=== PATIENT | male | born 1955 | race Caucasian/White ===

== ENCOUNTER 2019-11-06 12:42 | Observation (INO) | payer MEDICARE, MEDICAID ==
[~2019-11-06] VITALS: Ht 188 cm; Wt 136.0 kg
[~2019-11-06 12:42] MED LIST: ASPI81TA45 PO; ATOR80TA PO; ENAL2.5T32 PO; METO25TA91 PO; TICA90TA PO; [UNRECOGNIZED DRUG - CODE] PO
--- NOTE | 2019-11-06 13:02 | NUR ---
PT ARRIVES TO ED WITH C/O SUBSTERNAL/STERNUM CHEST PAIN THAT IS LIKE PRESSURE AND SHARP. PT REPORTS STARTED WHILE MOVING AROUND. PT REPORTS THAT HE HAS HX OF AN NM. PT DENIES ANY TRAUMA. PT REPORTS HE GOT SOB BUT THINKS IT WAS BECAUSE OF THE PAIN. PTS EKG WNL. PT HAS NO JVD, GOOD CAP REFILL AND EVEN UNLABORED RESPIRATIONS.
--- NOTE | 2019-11-06 13:04 | NUR ---
PT CONNECTED TO MONITORS AND CALL LIGHT IN REACH.
--- NOTE | 2019-11-06 13:23 | NUR ---
IV ESTABLISHED AND LABS DRAWN
[2019-11-06] MEDS ORDERED: SODIUM CHLORIDE FLUSH 10ML SYR IVF ONE (14:00)
[2019-11-06] MEDS ORDERED: ASPIRIN 81 MG TABLET CHEW PO ONE (14:00)
[2019-11-06] MEDS ORDERED: ASPIRIN 81 MG TABLET CHEW ONE (14:10)
[2019-11-06 14:20] LABS: BASOPHILS # (AUTO) 0.04 x10^3/uL (0-0.1); BASOPHILS % (AUTO) 1 % (0-1); EOSINOPHILS # (AUTO) 0.08 x10^3/uL (0-0.4); EOSINOPHILS % (AUTO) 1 % (1-7); LYMPHOCYTES # (AUTO) 1.72 x10^3/uL (1-3.4); LYMPHOCYTES % (AUTO) 29 % (22-44); MD NO; MEAN CORPUSCULAR HEMOGLOBIN 29.1 pg (27.5-34.5); MEAN CORPUSCULAR HGB CONC 33.3 g/dL (33.2-36.2); MEAN CORPUSCULAR VOLUME 87.5 fL (81-97); MEAN PLATELET VOLUME 8.2 fL (7.4-10.4); MONOCYTES # (AUTO) 0.49 x10^3/uL (0.2-0.8); MONOCYTES % (AUTO) 8 % (2-9); NEUTROPHILS # (AUTO) 3.55 x10^3/uL (1.8-6.8); NEUTROPHILS % (AUTO) 61 % (42-75); PLATELET COUNT 254 x10^3/uL (130-400); RED BLOOD COUNT 5.09 x10^6/uL (4.38-5.82); RED CELL DISTRIBUTION WIDTH 13.9 % (9.4-14.8)
[2019-11-06 14:25] LABS: ALANINE AMINOTRANSFERASE 46 U/L (12-78); ALBUMIN 4.1 g/dL (3.4-5.0); ANION GAP 8 mmol/L (5-15); CALCIUM 9.2 mg/dL (8.5-10.1); CHLORIDE 108 mmol/L (98-107); CREATININE 1.34 mg/dL (0.7-1.3)
[2019-11-06 14:29] LABS: ALKALINE PHOSPHATASE 66 U/L (45-117); BILIRUBIN,TOTAL 0.6 mg/dL (0.2-1.0); TOTAL PROTEIN 7.7 g/dL (6.4-8.2); TROPONIN I < 0.015 ng/mL (0.000-0.045)
[2019-11-06] MEDS ORDERED: SODIUM CHLORIDE 0.9% 1,000 ML IV SCH (15:34)
[2019-11-06] MEDS ORDERED: LISI5TAB7 PO (15:52)
[2019-11-06] MEDS ORDERED: EMPA25TA PO (15:56)
[2019-11-06] MEDS ORDERED: DOXY20TA5 PO (15:56)
[2019-11-06] MEDS ORDERED: METF500T17 PO (15:56)
[2019-11-06] MEDS ORDERED: SODIUM CHLORIDE FLUSH 10ML SYR IVF PRN (16:00)
[2019-11-06] MEDS ORDERED: ONDANSETRON 2MG/ML, 2ML IVPush PRN (16:00)
[2019-11-06] MEDS ORDERED: PROMETHAZINE 25 MG/ML, 1ML IM PRN (16:00)
[2019-11-06] MEDS ORDERED: LABETALOL 5MG/ML, 20ML IVPush PRN (16:00)
[2019-11-06] MEDS ORDERED: hydrALAzine 20 MG/ML, 1ML IVPush PRN (16:00)
[2019-11-06] MEDS ORDERED: morphine SULFATE 10 MG/ML, 1ML IVPush PRN (16:00)
[2019-11-06] MEDS ORDERED: NITROGLYCERIN 0.4 MG BOTTLE (25 TABS) SL PRN (16:00)
--- NOTE | 2019-11-06 16:14 | NUR ---
REPORT RECEIVED FROM PETR RAYMUNDO
[2019-11-06 16:16] LABS: CHOLESTEROL, TOTAL 151 mg/dL (140-239); TRIGLYCERIDES 263 mg/dL (50-200); VLDL CHOLESTEROL 53 mg/dL (0-25)
[2019-11-06 16:18] LABS: CHOL/HDL RATIO 4.4; HDL CHOL % 23 % (26-37); HDL CHOLESTEROL (DIRECT) 34 mg/dL (40-60); LDL CHOLESTEROL,CALCULATED 64 mg/dL (54-169); LDL/HDL RATIO 1.9 (0.5-3.0); TROPONIN I < 0.015 ng/mL (0.000-0.045)
--- NOTE | 2019-11-06 16:50 | NUR ---
REPORT GIVEN TO PETR KUMAR. PLAN OF CARE DISCUSSED
[2019-11-06 17:19] VITALS: BP 119/78
[2019-11-06] MEDS ORDERED: EMPA10TA PO (17:37)
[2019-11-06] MEDS: INSULIN LISPRO 100 UNITS/ML, PEN SQ-INSULIN SCH ×2 (18:10→20:03)
[2019-11-06 18:58] VITALS: BP 138/75
[2019-11-06] MEDS: TICAGRELOR 90 MG TABLET PO SCH (20:04)
[2019-11-06] MEDS: ENALAPRIL 2.5MG TABLET PO SCH (20:05)
[2019-11-06] MEDS: ATORVASTATIN 80 MG TABLET PO SCH ×2 (20:05→20:07)
[2019-11-06] MEDS: HEPARIN 5,000 UNITS/ML, 1ML SQ SCH (22:22)
[2019-11-06 23:31] LABS: TROPONIN I < 0.015 ng/mL (0.000-0.045)
[2019-11-07 00:55] VITALS: BP 126/74
[2019-11-07] MEDS ORDERED: ASPIRIN 325 MG TABLET EC PO SCH (06:00)
[2019-11-07] MEDS ORDERED: METOPROLOL SUCCINATE 25 MG TAB.ER.24H PO SCH (06:00)
[2019-11-07] MEDS: HEPARIN 5,000 UNITS/ML, 1ML SQ SCH ×2 (06:02→14:00)
[2019-11-07 06:45] LABS: BASOPHILS # (AUTO) 0.03 x10^3/uL (0-0.1); BASOPHILS % (AUTO) 1 % (0-1); EOSINOPHILS # (AUTO) 0.11 x10^3/uL (0-0.4); EOSINOPHILS % (AUTO) 2 % (1-7); LYMPHOCYTES # (AUTO) 1.94 x10^3/uL (1-3.4); LYMPHOCYTES % (AUTO) 34 % (22-44); MD NO; MEAN CORPUSCULAR HEMOGLOBIN 28.7 pg (27.5-34.5); MEAN CORPUSCULAR HGB CONC 32.7 g/dL (33.2-36.2); MEAN CORPUSCULAR VOLUME 87.8 fL (81-97); MEAN PLATELET VOLUME 7.8 fL (7.4-10.4); MONOCYTES # (AUTO) 0.47 x10^3/uL (0.2-0.8); MONOCYTES % (AUTO) 8 % (2-9); NEUTROPHILS # (AUTO) 3.18 x10^3/uL (1.8-6.8); NEUTROPHILS % (AUTO) 56 % (42-75); PLATELET COUNT 231 x10^3/uL (130-400); RED BLOOD COUNT 4.77 x10^6/uL (4.38-5.82); RED CELL DISTRIBUTION WIDTH 13.9 % (9.4-14.8)
[2019-11-07 06:51] LABS: ALBUMIN 3.6 g/dL (3.4-5.0); ANION GAP 5 mmol/L (5-15); CALCIUM 8.4 mg/dL (8.5-10.1); CHLORIDE 109 mmol/L (98-107)
[2019-11-07 06:58] LABS: ALANINE AMINOTRANSFERASE 45 U/L (12-78); ALKALINE PHOSPHATASE 59 U/L (45-117); BILIRUBIN,TOTAL 0.9 mg/dL (0.2-1.0); CREATININE 1.08 mg/dL (0.7-1.3); TROPONIN I < 0.015 ng/mL (0.000-0.045)
[2019-11-07] MEDS: INSULIN LISPRO 100 UNITS/ML, PEN SQ-INSULIN SCH ×3 (07:00→16:04)
[2019-11-07] MEDS: TICAGRELOR 90 MG TABLET PO SCH (09:00)
[2019-11-07] MEDS: ENALAPRIL 2.5MG TABLET PO SCH (09:47)
[2019-11-07 09:51] VITALS: BP 121/74
[2019-11-07 13:45] VITALS: BP 118/71
== END 2019-11-07 16:27 | disposition home or self-care (01) ==
LOC: ED 13:03 → INTOOBSV 15:11 → EDIP 15:11 → 5SO 17:22
PROVIDERS: ADMIT Internal Medicine; ATTEND Internal Medicine
DX: R07.89 Other chest pain (principal); I10 Essential (primary) hypertension; E78.5 Hyperlipidemia, unspecified; E11.65 Type 2 diabetes mellitus with hyperglycemia; I25.110 Atherosclerotic heart disease of native coronary artery with unstable angina pectoris; I21.3 ST elevation (STEMI) myocardial infarction of unspecified site; E66.01 Morbid (severe) obesity due to excess calories; E78.00 Pure hypercholesterolemia, unspecified; N28.9 Disorder of kidney and ureter, unspecified; Z79.82 Long term (current) use of aspirin; Z87.891 Personal history of nicotine dependence; Z95.5 Presence of coronary angioplasty implant and graft; Z96.652 Presence of left artificial knee joint
CPT/HCPCS: 36415; 71045; 80053; 80061; 82962; 83036; 83880; 84484; 85025; 93005; 93017; 93306; 96372; 99285; G0378; J1644; J7030; J1815